=== PATIENT | female | born 1960 | race Two or more races ===

== ENCOUNTER 2021-01-31 18:47 | Emergency (ER) | payer BC ==
[~2021-01-31] VITALS: Ht 162.6 cm; Wt 81.2 kg
[2021-01-31 19:04] VITALS: BP 119/87
[2021-01-31] MEDS ORDERED: IBUP-1955 PO (19:29)
[2021-01-31] MEDS ORDERED: ACETAMINOPHEN 325 MG TABLET PO ONE (19:30)
[2021-01-31] MEDS ORDERED: ACETAMINOPHEN ES 500 MG TABLET ONE (19:31)
--- NOTE | 2021-01-31 19:45 | NUR ---
Patient discharged to home in stable condition. Written and verbal after care instructions given. Patient verbalizes understanding of instruction.
== END 2021-01-31 19:45 | disposition home or self-care (01) ==
LOC: ER 18:56
DX: S39.012A Strain of muscle, fascia and tendon of lower back, initial encounter (principal); S16.1XXA Strain of muscle, fascia and tendon at neck level, initial encounter; Z60.2 Problems related to living alone; V49.59XA Passenger injured in collision with other motor vehicles in traffic accident, initial encounter; Y93.89 Activity, other specified; Y92.413 State road as the place of occurrence of the external cause; Y99.8 Other external cause status